=== PATIENT | male | born 1955 | race Caucasian/White ===

== ENCOUNTER 2020-05-24 08:30 | Day surgery (SDC) | payer BC ==
[~2020-05-24 08:30] MED LIST: RITALIN SR20 MG PO
[2020-05-24 12:12] VITALS: BP 126/68
--- NOTE | 2020-05-24 14:31 | NUR ---
PER PHYSICIAN, COLONOSCOPY FINDINGS GIVEN, INTERNAL HEMORRHOIDS. RECOMMENDATIONS, OVER THE COUNTER SUPPOSITORIES AND HYDROCORTISONE OINTMENT FOR SYMPTOMS NEEDED. REPEAT COLONOSCOPY X 5 YEARS OR SOONER IF NEEDED. VERBALIZED UNDERSTANDING OF INFORMATION PROVIDED. REPORT FORWARDED TO PRIMARY CARE PHYSICIAN FOR CONTINUITY OF CARE.
== END 2020-05-24 11:37 | disposition home or self-care (01) | DRG 951 ==
LOC: ENDO 08:30 → ORM 09:00 → ENDO 09:00
PROVIDERS: ATTEND Surgery
PROC: 0DJD8ZZ Inspection of Lower Intestinal Tract, Via Natural or Artificial Opening Endoscopic (ICD-10-PCS; principal; 2020-05-24)
DX: Z12.11 Encounter for screening for malignant neoplasm of colon (principal); K64.8 Other hemorrhoids; Z86.010 Personal history of colon polyps; Z20.828 Contact with and (suspected) exposure to other viral communicable diseases